=== PATIENT | female | born 1970 | race Caucasian/White ===

== ENCOUNTER 2024-07-12 22:04 | Emergency (ER) | payer BC ==
--- NOTE | 2024-07-12 22:24 | ED ---
General Adult HPI - General Source: patient, RN notes reviewed Mode of arrival: ambulatory Limitations: no limitations <Alejandro Wade - Last Filed: 07/12/24 22:23> - General Source: patient, RN notes reviewed <Kimberly Espinoza - Last Filed: 07/13/24 01:14> - General Stated complaint: left finger laceration Time Seen by Provider: 07/12/24 22:19 - History of Present Illness Initial comments: Quick note: This is a 54-year-old female presenting for laceration of left index finger. Patient states that she accidentally cut herself around 2014 this evening. States she was unable to get bleeding to stop despite no use of blood thinners. Denies any other significant injury. (Alejandro Wade) 54-year-old female presenting for left index finger laceration 3 hours ago. States she accidentally cut herself with a kitchen knife while opening a bag. Denies blood thinners. Last tetanus unknown. (Kimberly Espinoza) - Related Data Allergies Allergy/AdvReac Type Severity Reaction Status Date / Time Penicillins Allergy Rash/Hives Verified 07/12/24 22:28 Review of Systems ROS Other: All systems not noted in ROS Statement are negative. <Alejandro Wade - Last Filed: 07/12/24 22:23> ROS Other: All systems not noted in ROS Statement are negative. <Kimberly Espinoza - Last Filed: 07/13/24 01:14> ROS Statement: Those systems with pertinent positive or pertinent negative responses have been documented in the HPI. General Exam <Alejandro Wade - Last Filed: 07/12/24 22:23> General appearance: alert, in no apparent distress Head exam: Present: atraumatic, normocephalic, normal inspection Eye exam: Present: normal appearance, PERRL, EOMI. Absent: scleral icterus, conjunctival injection, periorbital swelling Left Forearm Wrist exam: Present: normal inspection, full ROM. Absent: tenderness, swelling Hand Wrist exam: Present: full ROM, laceration. Absent: normal inspection (There is a 2 cm superficial laceration present on ventral aspect of distal second digit with minimal active bleeding), tenderness, swelling, abrasion, deformity Vascular: Present: normal capillary refill, radial pulse. Absent: vascular compromise Neurological exam: Present: alert, oriented X3 Psychiatric exam: Present: normal affect, normal mood Skin exam: Present: warm, dry, intact, normal color. Absent: rash <Kimberly Espinoza - Last Filed: 07/13/24 01:14> - General Exam Comments Initial Comments: Visual Physical Exam Vital signs reviewed General: Well-appearing, nontoxic, no acute distress. Head: Normocephalic, atraumatic Eyes: PERRLA, EOMI ENT: Airway patent Chest: Nonlabored breathing Skin: No visual rash, normal skin tone Neuro: Alert and oriented 3 Musculoskeletal: No gross abnormalities (Alejandro Wade) Course Vital Signs 07/12/24 22:24 Temperature 98.5 F Pulse Rate 76 Respiratory 18 Rate Blood Pressure 120/74 O2 Sat by Pulse 98 Oximetry Medical Decision Making <Alejandro Wade - Last Filed: 07/12/24 22:23> <Kimberly Espinoza - Last Filed: 07/13/24 01:14> - Medical Decision Making I completed the quick note portion of this chart signed HARRISON Damian (Alejandro Wade) Was pt. sent in by a medical professional or institution (BERONICA Rosales, LENDING ADVISOR, urgent care, hospital, or halfway...) When possible be specific @ -No Did you speak to anyone other than the patient for history (EMS, parent, family, police, friend...)? What history was obtained from this source @ -No Did you review nursing and triage notes (agree or disagree)? Why? @ -I reviewed and agree with nursing and triage notes Were old charts reviewed (outside hosp., previous admission, EMS record, old EKG, old radiological studies, urgent care reports/EKG's, halfway records)? Report findings @ -No old charts were reviewed Differential Diagnosis (chest pain, altered mental status, abdominal pain women, abdominal pain men, vaginal bleeding, weakness, fever, dyspnea, syncope, headache, dizziness, GI bleed, back pain, seizure, CVA, palpatations, mental health, musculoskeletal)? @ -Differential Musculoskeletal Muscular strain, contusion, ligament sprain, fracture, arthritis, septic arthritis, bursitis, cellulitis, muscle spasm, nerve compression, DVT, arterial occlusion, herpes zoster, electrolyte abnormality, tumor.... This is not meant to be in all inclusive list EKG interpreted by me (3pts min.). @ -None X-rays interpreted by me (1pt min.). @ -None done CT interpreted by me (1pt min.). @ -None done U/S interpreted by me (1pt. min.). @ -None done What testing was considered but not performed or refused? (CT, X-rays, U/S, labs)? Why? @ -None What meds were considered but not given or refused? Why? @ -None Did you discuss the management of the patient with other professionals (professionals i.e. , PA, LENDING ADVISOR, lab, RT, psych nurse, social work assistant, service counter cashier, teacher, patient safety officer, insurance case manager)? Give summary @ -No Was smoking cessation discussed for >3mins.? @ -No Was critical care preformed (if so, how long)? @ -No Were there social determinants of health that impacted care today? How? (Homelessness, low income, unemployed, alcoholism, drug addiction, transportation, low edu. Level, literacy, decrease access to med. care, custodial, rehab)? @ -No Was there de-escalation of care discussed even if they declined (Discuss DNR or withdrawal of care, Hospice)? DNR status @ -No What co-morbidities impacted this encounter? (DM, HTN, Smoking, COPD, CAD, Cancer, CVA, ARF, Chemo, Hep., AIDS, mental health diagnosis, sleep apnea, morbid obesity)? @ -None Was patient admitted / discharged? Hospital course, mention meds given and route, prescriptions, significant lab abnormalities, going to OR and other pertinent info. @ -Discharge. 54-year-old female presenting for left index finger laceration 3 hours ago while trying to open a bag with a kitchen knife. There is a superficial 2 cm laceration present on ventral aspect of distal second digit. Tetanus was updated. Wound was thoroughly irrigated and Steri-Strips/skin adhesive was applied. Appropriate return precautions and supportive care discussed. Case was discussed with my ED attending Dr. Puri. Undiagnosed new problem with uncertain prognosis? @ -No Drug Therapy requiring intensive monitoring for toxicity (Heparin, Nitro, Insulin, Cardizem)? @ -No Were any procedures done? @ -No Diagnosis/symptom? @ -Left index finger laceration Acute, or Chronic, or Acute on Chronic? @ -Acute Uncomplicated (without systemic symptoms) or Complicated (systemic symptoms)? @ -Uncomplicated Side effects of treatment? @ -No Exacerbation, Progression, or Severe Exacerbation? @ -No Poses a threat to life or bodily function? How? (Chest pain, [place], [place], pneumonia, PE, COPD, DKA, ARF, appy, cholecystitis, CVA, Diverticulitis, Homicidal, Suicidal, threat to staff... and all critical care pts) @ -No (Kimberly Espinoza) Disposition <Alejandro Wade - Last Filed: 07/12/24 22:23> Is patient prescribed a controlled substance at d/c from ED?: No Time of Disposition: 01:14 <Kimberly Espinoza - Last Filed: 07/13/24 01:14> Clinical Impression: Laceration of left index finger Disposition: HOME SELF-CARE Condition: Stable Instructions (If sedation given, give patient instructions): Finger Laceration (ED) Additional Instructions: Keep wound dry for the first 24 hours. Please return to the Emergency Department if symptoms worsen or any other concerns. Referrals: Tanvi Irizarry DO [Primary Care Provider] - 1-2 days
[2024-07-12 22:28] VITALS: BP 120/74; PULSE 76; RESP 18; TEMP 98.5
[2024-07-12] MEDS: DIPH,PERTUS(ACELL)TETVAC-LF 0.5 ML VIAL IM ONE (23:52)
== END 2024-07-13 01:21 | disposition home or self-care (01) ==
LOC: EC 22:04
DX: S61.211A Laceration without foreign body of left index finger without damage to nail, initial encounter (principal); Z88.0 Allergy status to penicillin; Z23 Encounter for immunization; W26.0XXA Contact with knife, initial encounter
CPT/HCPCS: 12001; 90471; 90715; 99282